=== PATIENT | female | born 1985 | race Caucasian/White ===

== ENCOUNTER 2017-06-25 16:09 | Emergency (ER) | payer OTHER ==
[~2017-06-25 16:09] MED LIST: IBUP600 PO; OXYC1SOL5 PO; PEDI1CHW6; PERI8.6T PO
[2017-06-25 16:38] VITALS: BP 128/88; PULSE 96; TEMP 97.7; O2SAT 100
--- NOTE | 2017-06-25 17:49 | PD ---
HPI Chief Complaint: GI Complaint Time Seen by Provider: 17:22 Travel History International Travel<30 days: No Contact w/Intl Traveler<30days: No Traveled to known affect area: No History of Present Illness HPI 31-year-old female, approximately 26 weeks , presents to the emergency department with complaint of rectal pain secondary to constipation and hard stool for the past 2-3 days. She tried using an enema twice without relief. She has also tried disimpacting herself without relief. Her filling station equipment mechanic told her to come to the ER. She denies any abdominal pain or cramping. Denies vaginal bleeding, leaking. Denies dysuria. Reports normal movement. Denies fever, vomiting. Symptoms are mild to moderate in severity. Constantly aggravated. No known relieving factors. Does not know the name of her primary care provider. No known allergies. Her filling station equipment mechanic is Lisa Abraham. Denies significant past medical history. Has no other medical complaints. No other modifying factors or associated signs and symptoms. PFSH Past Medical History Sleep Apnea: Yes ?: Ectopic : No Ovarian Cysts: No Dilation and Curettage (D&C): No Tubal Ligation: No Past Surgical History Section: Yes Hysterectomy: No Tonsillectomy: Yes Social History Alcohol Use: No Tobacco Use: No Substance Use: No Allergies-Medications (Allergen,Severity, Reaction): Coded Allergies: No Known Allergies (Unverified , 05/26/15) Reported Meds & Prescriptions Reported Meds & Active Scripts Active Chiquita-Colace 8.6-50 mg (Sennosides-Docusate Sodium) 1 Tab Tab 2 Tab PO Q12H Oxycodone/Acetaminophen 5 mg/325 mg 5 mg/325 mg Tab 1 Tab PO Q4H PRN Motrin 600 Mg Tab (Ibuprofen) 600 Mg Tab 600 Mg PO Q6H PRN Reported Flintstones Multivitamin (Multivitamins/Folic Acid/Vitamin C) 1 Tab Chew 1 Tab .XX Review of Systems Except as stated in HPI: all other systems reviewed are Neg Physical Exam Narrative GENERAL: Well-nourished, well-developed female patient, in no acute distress; afebrile, nontoxic-appearing SKIN: Warm and dry. HEAD: Atraumatic. Normocephalic. EYES: Pupils equal and round. No scleral icterus. No injection or drainage. ENT: Mucosa pink and moist. Airway patent. NECK: Trachea midline. CARDIOVASCULAR: Regular rate. RESPIRATORY: No accessory muscle use. GASTROINTESTINAL: Rounded. RECTAL EXAM: Exam done in the presence of a nurse. rectal vault is full of hard stool. Stool is brown. No visualized external hemorrhoids. MUSCULOSKELETAL: No obvious deformities. No clubbing. No cyanosis. No edema. NEUROLOGICAL: Awake and alert. Oriented 3. No obvious cranial nerve deficits. Motor grossly within normal limits. Normal speech. PSYCHIATRIC: Appropriate mood and affect; insight and judgment normal. Data Data Last Documented VS Vital Signs Date Time Temp Pulse Resp B/P (MAP) Pulse Ox O2 Delivery O2 Flow Rate FiO2 06/25/17 18:05 06/25/17 16:38 97.7 96 100 Orders Orders Ed Discharge Order (06/25/17 17:49) [facility] Medical Decision Making Medical Screen Exam Complete: Yes Emergency Medical Condition: Yes Medical Record Reviewed: Yes Differential Diagnosis Constipation, fecal disimpaction, fecal impaction Narrative Course 31-year-old female with constipation and fecal impaction. She is 26 weeks . No complaints. Rectal vault is full of hard stool and I performed fecal disimpaction with success and removal of all the stool from the rectal vault. Patient reports good relief. Instructed patient to follow-up with peg driver. Instructed patient to follow up with primary care provider. Patient verbalizes understanding and agreement with treatment plan. Patient is medically cleared and stable for discharge. Discussed reasons to return to the emergency department. Patient agrees with treatment plan. The patients vital signs are stable and the patient is stable for outpatient follow-up and treatment. Patient discharged home, stable and in no acute distress. Diagnosis Primary Impression: Constipation Qualified Codes: K59.00 - Constipation, unspecified Additional Impression: fecal disimpaction Referrals: [facility] Primary Care Physician Patient Instructions: Constipation (ED), General Instructions Additional Instructions: Follow-up with peg driver Follow-up with primary care provider Return to the emergency department immediately if worsening of symptoms Med/Other Pt SpecificInfo: No Change to Meds, No Meds Exist/No RX given Disposition: DISCHARGE HOME Condition: Stable Minerva Puente June 25, 2017 17:49
== END 2017-06-25 18:05 | disposition home or self-care (01) ==
LOC: NEPD 16:09
DX: O99.89 Other specified diseases and conditions complicating pregnancy, childbirth and the puerperium (principal); K59.00 Constipation, unspecified; K62.89 Other specified diseases of anus and rectum; Z3A.26 26 weeks gestation of pregnancy
CPT/HCPCS: 99284

== ENCOUNTER 2017-07-21 11:05 | Emergency (ER) | payer OTHER ==
[2017-07-21 11:23] VITALS: BP 129/73; PULSE 95; RESP 17; TEMP 97.2; O2SAT 97
[2017-07-21] MEDS ORDERED: PRENTAB7 (11:40)
--- NOTE | 2017-07-21 12:10 | PD ---
HPI Chief Complaint: Cold / Flu Symptoms Time Seen by Provider: 11:38 Travel History International Travel<30 days: No Contact w/Intl Traveler<30days: No Traveled to known affect area: No History of Present Illness HPI 32-year-old female, approximately 30 weeks , with complaint of chills, sweats, sore throat, nasal congestion, and occasional cough 3 days. Does not have any complaints. She denies abdominal pain, abdominal cramping, vaginal discharge, vaginal leaking. Reports normal movement. Denies nausea, vomiting. Reports subjective fever. Has not taken her temperature and cannot report a T-max. Also complaining of right eye itching, crusting and drainage that started 2 days ago. Denies eye pain. Denies change in vision. Is waking up in the morning with her eye crusted shut. Denies ear pain. Denies chest pain, shortness of breath. Says she has maybe only coughed twice in the last 3 days. Has taken Tylenol for symptom management. Symptoms are mild to moderate in severity. Her children go to daycare and her daughter was sent home yesterday with a fever. No primary care provider. No known allergies. Denies significant past medical history. Sees a wool brusher for her . Has no other medical complaints. No other modifying factors or associated signs and symptoms. PFSH Past Medical History Sleep Apnea: Yes Influenza Vaccination: Yes ?: LMP: 30 WEEKS : 3 Para: 2 Ectopic : No Ovarian Cysts: No Dilation and Curettage (D&C): No Tubal Ligation: No Past Surgical History Section: Yes Cholecystectomy: Yes Hysterectomy: No Tonsillectomy: Yes Social History Alcohol Use: No Tobacco Use: No Substance Use: No Allergies-Medications (Allergen,Severity, Reaction): Coded Allergies: No Known Allergies (Unverified , 05/26/15) Reported Meds & Prescriptions Reported Meds & Active Scripts Active Erythromycin Opth Oint 5 Mg/Gm Oint 1 Applic RIGHT EYE QID 7 Days Reported Vitamins Tablet (Pnv No.95/Ferrous Fum/Folic AC) 28 Mg Iron-800 Mcg Tablet Unknown Dose Review of Systems Except as stated in HPI: all other systems reviewed are Neg Physical Exam Narrative GENERAL: Well-nourished, well-developed female patient, in no acute distress; afebrile, nontoxic-appearing SKIN: Warm and dry. No rash. HEAD: Atraumatic. Normocephalic. EYES: Pupils equal and round at 3 mm with brisk reaction. No scleral icterus. No injection or drainage. EOMI. PERRLA. No orbital cellulitis or erythema. Right eye with crusted drainage noted to the eyelashes; no scleral erythema; no lid edema. ENT: Mucosa pink and moist. Oropharynx with erythema; without edema or exudates. No uvular edema. No uvular, palatal, or tonsillar deviation. Airway patent. EARS: Bilateral pinnae and external canals appear within normal limits. I am unable to visualize bilateral tympanic membranes secondary to bilateral cerumen impactions. NECK: Trachea midline. No lymphadenopathy. CARDIOVASCULAR: Regular rate and rhythm. No murmur appreciated. RESPIRATORY: No accessory muscle use. Clear to auscultation. Breath sounds equal bilaterally. No retractions or tachypnea. GASTROINTESTINAL: . Rounded. MUSCULOSKELETAL: No obvious deformities. No clubbing. No cyanosis. No edema. NEUROLOGICAL: Awake and alert. Oriented 3. No obvious cranial nerve deficits. Motor grossly within normal limits. Normal speech. Moves all extremities. 5/5 strength to all extremities. PSYCHIATRIC: Appropriate mood and affect; insight and judgment normal. Data Data Last Documented VS Vital Signs Date Time Temp Pulse Resp B/P (MAP) Pulse Ox O2 Delivery O2 Flow Rate FiO2 07/21/17 11:23 97.2 95 17 129/73 (91) 97 Orders Orders Group A Rapid Strep Screen (07/21/17 11:45) Influenzae A/B Antigen (07/21/17 11:45) Strep Culture (Group A) (07/21/17 11:54) Ed Discharge Order (07/21/17 12:47) [facility] Medical Decision Making Medical Screen Exam Complete: Yes Emergency Medical Condition: Yes Medical Record Reviewed: Yes Differential Diagnosis Viral illness, conjunctivitis, sinusitis, upper respiratory infection, influenza , strep pharyngitis Narrative Course 32-year-old female with cold/flu symptoms 3 days and right eye conjunctivitis 2 days. She is approximately 30 weeks and has no complaints. She is afebrile and nontoxic-appearing. Reports subjective fevers. Denies nausea, vomiting. Rapid strep, influenza ordered. 1250: Rapid strep and influenza negative. Erythromycin ophth ointment prescribed for home. Discussed viral illness and symptom management. Instructed patient to follow up with primary care provider. Patient verbalizes understanding and agreement with treatment plan. Patient is medically cleared and stable for discharge. Discussed reasons to return to the emergency department. Patient agrees with treatment plan. The patients vital signs are stable and the patient is stable for outpatient follow-up and treatment. Patient discharged home, stable and in no acute distress. Diagnosis Primary Impression: Conjunctivitis Qualified Codes: H10.9 - Unspecified conjunctivitis Additional Impression: Viral illness Referrals: [facility], [place] Primary Care Physician Patient Instructions: Cold Symptoms (ED), Conjunctivitis (ED), General Instructions Additional Instructions: Conjunctivitis is contagious Use antibiotic eye drops as prescribed Apply warm or cool compresses to both eyes for a few minutes several times daily to minimize irritation Avoid triggers, such as allergens, that may irritate your eyes Wash your hands frequently Do not share washcloths, towels, pillows, or any other material that has touched your eyes with any other household members Follow-up with your primary care provider Follow-up with ophthalmology as needed Return to the emergency department immediately with worsening of symptoms Med/Other Pt SpecificInfo: Prescription(s) given Scripts Erythromycin Opth Oint (Erythromycin Opth Oint) 5 Mg/Gm Oint 1 APPLIC RIGHT EYE QID for Infection for 7 Days, #1 TUBE 0 Refills Prov: Minerva Puente 07/21/17 Disposition: 01 DISCHARGE HOME Condition: Stable Minerva Puente Jul 21, 2017 12:10
[2017-07-21] MEDS ORDERED: ERYTOIN10 RIGHT EYE (12:47)
== END 2017-07-21 13:01 | disposition home or self-care (01) ==
LOC: NEPK 11:05
DX: O99.89 Other specified diseases and conditions complicating pregnancy, childbirth and the puerperium (principal); H10.9 Unspecified conjunctivitis; O98.513 Other viral diseases complicating pregnancy, third trimester; B34.9 Viral infection, unspecified; Z3A.30 30 weeks gestation of pregnancy
CPT/HCPCS: 87081; 87804; 87880; 99283